=== PATIENT | male | born 1975 | race Caucasian/White ===

== ENCOUNTER 2019-10-22 03:17 | Emergency (ER) | payer OTHER ==
[~2019-10-22] VITALS: Ht 172.7 cm; Wt 77.1 kg
--- NOTE | 2019-10-22 04:00 | PHYS DOC ---
Past History Past Medical History: No Pertinent History Past Surgical History: No Surgical History Alcohol Use: None Drug Use: None Adult General Chief Complaint Chief Complaint: ABDOMINAL PAIN HPI HPI 43-year-old male presents with upper abdominal pain. The patient woke up around 1 AM with upper abdominal pressure mild to moderate intensity. The patient is around the went to the restroom thinking this would help with the discomfort. It has not gone away. The patient had a stomach illness" earlier this week. His daughter also had this illness. She has completely recovered. This pressure feeling was different than anything he had in the past. The patient and were concerned this could be related to his heart rather than his stomach. The patient did have a fast heart rate which has improved. He denies shortness of breath or diaphoresis. He has no history of heart trouble. No history of heart disease at young age in the family. Denies fever or chills. No vomiting or diarrhea. Review of Systems Review of Systems Constitutional: Denies fever or chills [] Eyes: Denies change in visual acuity, redness, or eye pain [] HENT: Denies nasal congestion or sore throat [] Respiratory: Denies cough or shortness of breath [] Cardiovascular: No additional information not addressed in HPI [] GI: Upper abdominal pain. Denies nausea, vomiting, bloody stools or diarrhea [] : Denies dysuria or hematuria [] Musculoskeletal: Denies back pain or joint pain [] Integument: Denies rash or skin lesions [] Neurologic: Denies headache, focal weakness or sensory changes [] Endocrine: Denies polyuria or polydipsia [] All other systems were reviewed and found to be within normal limits, except as documented in this note. Physical Exam Physical Exam Constitutional: Well developed, well nourished, no acute distress, non-toxic appearance. [] HENT: Normocephalic, atraumatic, bilateral external ears normal, oropharynx moist, no oral exudates, nose normal. [] Eyes: PERRLA, EOMI, conjunctiva normal, no discharge. [] Neck: Normal range of motion, no tenderness, supple, no stridor. [] Cardiovascular:Heart rate regular rhythm, no murmur [] Lungs & Thorax: Bilateral breath sounds clear to auscultation [] Abdomen: Bowel sounds normal, soft, no tenderness, no masses, no pulsatile masses. [] Skin: Warm, dry, no erythema, no rash. [] Back: No tenderness, no CVA tenderness. [] Extremities: No tenderness, no cyanosis, no clubbing, ROM intact, no edema. [] Neurologic: Alert and oriented X 3, normal motor function, normal sensory function, no focal deficits noted. [] Psychologic: Affect normal, judgement normal, mood concerned. [] Current Patient Data Vital Signs Vital Signs Date Time Temp Pulse Resp B/P (MAP) Pulse Ox O2 Delivery O2 Flow Rate FiO2 10/22/19 03:17 97.4 79 18 97 Room Air EKG EKG Sinus rhythm, rate 62, normal axis, no ST elevations or depressions.[] Radiology/Procedures Radiology/Procedures [] Impressions: KUB, CHEST PA LATERAL INDICATION: Abdominal pain, chest pain. COMPARISON STUDY: None. FINDINGS: Lungs: Normal lung volume. No pulmonary mass or consolidation. The tracheobronchial tree and hilar structures are normal. Pleura: No pleural effusion or pneumothorax. Heart and Mediastinum: The cardiomediastinal silhouette is normal. The great vessels of the thorax are normal. Abdomen: Nonobstructive bowel gas pattern. No free air. Moderate colonic stool burden. Bones and Soft Tissues: The bones and soft tissues are within normal limits. IMPRESSION: 1. Nonobstructive bowel gas pattern. Moderate colonic stool burden. 2. No focal airspace disease. Electronically signed by: Lamin Serrano MD (10/22/2019 4:36 AM) [facility] DICTATED AND SIGNED BY: LAMIN SERRANO MD DATE: 10/22/19 0436 CC: GRECIA HERRERA DO; PCP,NO ~ Course & Med Decision Making Course & Med Decision Making Pertinent Labs and Imaging studies reviewed. (See chart for details) The patient's chest x-ray is unremarkable. His KUB does show moderate stool burden. The patient's labs are unremarkable. His troponin is negative. Initial EKG like it might be atrial flutter, but it turned out to be poorly placement. A repeat EKG did not show any significant abnormalities. I have advised the patient to take a laxative for bowel cleanout see if this will help with his discomfort. He is stable for discharge at this time. [] Dragon Disclaimer Dragon Disclaimer This electronic medical record was generated, in whole or in part, using a voice recognition dictation system. Departure Departure: Impression: Primary Impression: Abdominal pain Additional Impression: Constipation by delayed colonic transit Disposition: HOME, SELF-CARE Condition: STABLE Referrals: PCP,ANNIE (PCP) Patient Instructions: Constipation, Adult, [id number] Problem Qualifiers Primary Impression: Abdominal pain Abdominal location: upper abdomen, unspecified Qualified Codes: R10.10 - Upper abdominal pain, unspecified GRECIA HERRERA DO Oct 22, 2019 04:00
--- NOTE | 2019-10-22 04:39 | RAD ---
KUB, CHEST PA LATERAL INDICATION: Abdominal pain, chest pain. COMPARISON STUDY: None. FINDINGS: Lungs: Normal lung volume. No pulmonary mass or consolidation. The tracheobronchial tree and hilar structures are normal. Pleura: No pleural effusion or pneumothorax. Heart and Mediastinum: The cardiomediastinal silhouette is normal. The great vessels of the thorax are normal. Abdomen: Nonobstructive bowel gas pattern. No free air. Moderate colonic stool burden. Bones and Soft Tissues: The bones and soft tissues are within normal limits. IMPRESSION: 1. Nonobstructive bowel gas pattern. Moderate colonic stool burden. 2. No focal airspace disease. Electronically signed by: Ifeanyi Zarate MD (10/22/2019 4:36 AM) [facility]
[2019-10-22 04:40] LABS: BASO # 0.2 x10^3/uL (0.0-0.2); BASO % 2 % (0-3); EOS # 0.1 x10^3/uL (0.0-0.7); EOS % 1 % (0-3); HEMATOCRIT 40.2 % (39.0-53.0); LYMPH # 1.6 x10^3/uL (1.0-4.8); LYMPH % 16 % (24-48); MEAN CORPUSCULAR HEMOGLOBIN 30 pg (25-35); MEAN CORPUSCULAR HGB CONC 35 g/dL (31-37); MEAN CORPUSCULAR VOLUME 85 fL (79-100); MONO # 0.8 x10^3/uL (0.0-1.1); MONO % 8 % (0-9); NEUT # 7.3 x10^3uL (1.8-7.7); NEUT % 73 % (31-73); PLATELET COUNT 316 x10^3/uL (140-400); RED BLOOD COUNT 4.71 x10^6/uL (4.30-5.70); RED CELL DISTRIBUTION WIDTH 12.7 % (11.5-14.5)
[2019-10-22 04:46] LABS: BILIRUBIN,URINE NEG (NEG); CLARITY,URINE CLEAR; COLOR,URINE YELLOW; GLUCOSE,URINE NEG (NEG); NITRITE,URINE NEG (NEG); RBC,URINE OCC /HPF (0-2)
[2019-10-22 04:47] LABS: BACTERIA,URINE 0 /HPF (0-FEW); SQUAMOUS EPITHELIAL CELL,UR OCC /LPF; WBC,URINE RARE /HPF (0-4)
[2019-10-22 04:56] LABS: CALCIUM 8.8 mg/dL (8.5-10.1); CREATININE 0.9 mg/dL (0.7-1.3); GFR 91.7; POTASSIUM 3.7 mmol/L (3.5-5.1)
[2019-10-22 05:02] LABS: ALBUMIN 3.8 g/dL (3.4-5.0); ALBUMIN/GLOBULIN RATIO 0.9 (1.0-1.7); TOTAL BILIRUBIN 0.5 mg/dL (0.2-1.0); TOTAL PROTEIN 7.9 g/dL (6.4-8.2)
[2019-10-22 05:05] VITALS: BP 120/67
[2019-10-22] MEDS ORDERED: AMOX1TAB61 PO (05:15)
--- NOTE | 2019-10-23 21:49 | EKG ---
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
== END 2019-10-22 05:30 | disposition home or self-care (01) ==
LOC: ER 03:17
DX: K59.01 Slow transit constipation (principal)
CPT/HCPCS: 36415; 71046; 74018; 80053; 81001; 83735; 84484; 85025; 93005; 99285

== ENCOUNTER 2019-12-20 20:18 | Observation (INO) | payer OTHER ==
[~2019-12-20] VITALS: Ht 174 cm; Wt 82.5 kg
[~2019-12-20 20:18] MED LIST: AMOX1TAB61 PO
--- NOTE | 2019-12-20 20:24 | PHYS DOC ---
Past History Past Medical History: No Pertinent History, Constipation Past Surgical History: No Surgical History Alcohol Use: None Drug Use: None Adult General Chief Complaint Chief Complaint: ".. I had knee surgery ...a scope and discuss repair on Friday.... But ever since I have not had a stool and now I can't urinate... I tried enemas and suppositories little bit of leakage but I'm really bound up..." HPI HPI Patient is a 44 year old male who presents with above hx and complaints constipation obstipation and urinary retention. Patient had right knee surgery on Friday the . Since that time he has not had a stool and now has not been able to urinate.. Patient has tried home remedies with enemas and suppositories with no results. Abdomen is very distended both and bladder region and colon on Lt. also has complaints of right leg edema and swelling. Review of Systems Review of Systems Constitutional: Denies fever or chills [] Eyes: Denies change in visual acuity, redness, or eye pain [] HENT: Denies nasal congestion or sore throat [] Respiratory: Denies cough or shortness of breath [] Cardiovascular: No additional information not addressed in HPI [] GI: Complaints of abdominal pain, nausea, and constipation : Denies dysuria or hematuria . Patient []complains of urinary retention Musculoskeletal: Denies back pain or joint pain [] Integument: Denies rash or skin lesions [] Neurologic: Denies headache, focal weakness or sensory changes [] Endocrine: Denies polyuria or polydipsia [] All other systems were reviewed and found to be within normal limits, except as documented in this note. Family History Family History Noncontributory to presentation Current Medications Current Medications See nursing for home meds Allergies Allergies Allergies Coded Allergies Type Severity Reaction Last Updated Verified No Known Allergies Allergy Unknown 10/22/19 Yes Physical Exam Physical Exam Constitutional: Well developed, well nourished, in acute distress, non-toxic appearance. [] HENT: Normocephalic, atraumatic, bilateral external ears normal, oropharynx moist, no oral exudates, nose normal. [] Eyes: PERRLA, EOMI, conjunctiva normal, no discharge. [] Neck: Normal range of motion, no tenderness, supple, no stridor. [] Cardiovascular:Heart rate regular rhythm, no murmur [] Lungs & Thorax: Bilateral breath sounds clear to auscultation [] Abdomen: Bowel sounds normal, soft, rectal tenderness, very distended bladder and left sided of abdomen, no pulsatile masses. [] Digital exam of rectum hard impacted stool found in digitally fractured the impaction. Placed suppositories placed. Circumcised male. Porter placed with return of more than thousand cc of urine. Skin: Warm, dry, no erythema, no rash. [] Back: No tenderness, no CVA tenderness. [] Extremities: No tenderness, no cyanosis, no clubbing, ROM intact, except right leg edema. Dressing in place no drainage. Ecchymosis.. [] Neurologic: Alert and oriented X 3, normal motor function, normal sensory function, no focal deficits noted. [] Psychologic: Affect anxious, judgement normal, mood normal. [] EKG EKG [] Radiology/Procedures Radiology/[place] [address] IMAGING REPORT Signed PATIENT: BAUDILIO COMBS FACCOUNT: [id number] : 1975 LOCATION: ER AGE: 44 SEX: M EXAM STATUS: REG ER ORD. PHYSICIAN: JACOBO MAI MD REASON: pain PROCEDURE: ACUTE ABDOMEN SERIES ACUTE ABDOMEN SERIES INDICATION: Pain. COMPARISON STUDY: None. FINDINGS: Lungs: Normal lung volume. No pulmonary mass or consolidation. The tracheobronchial tree and hilar structures are normal. Pleura: No pleural effusion or pneumothorax. Heart and Mediastinum: The cardiomediastinal silhouette is normal. The great vessels of the thorax are normal. Abdomen: Nonobstructive bowel gas pattern. No free air. Moderate colonic stool burden. Bones and Soft Tissues: The bones and soft tissues are within normal limits. IMPRESSION: 1. Nonobstructive bowel gas pattern. Moderate colonic stool burden. 2. No focal airspace disease. Electronically signed by: Lamin Zarate MD (12/20/2019 10:29 PM) [id number] DICTATED AND SIGNED BY: LAMIN ZARATE MD DATE: 12/20/192228 CC: AJCOBO MAI MD; PCP,NO ~ [][address] [address] IMAGING REPORT Signed PATIENT: BAUDILIO COMBS FACCOUNT: [id number] : 1975 LOCATION: [address] [place] [address] AGE: 44 SEX: M EXAM STATUS: ADM IN ORD. PHYSICIAN: JACOBO MAI MD REASON: knee surgery friday, concern for DVT PROCEDURE: VENOUS LOWER EXTREMITY RIGHT INDICATION: Status post right knee surgery with leg pain COMPARISON: None. TECHNIQUE: Grayscale, color and doppler ultrasound images were obtained of the right lower extremity venous vasculature. RIGHT: No thrombus identified in the common femoral vein, femoral vein, popliteal vein or visualized calf veins. IMPRESSION: * No thrombus identified in deep venous system of right lower extremity. Electronically signed by: Missy Lobato MD (12/21/2019 12:27 AM) [id number] DICTATED AND SIGNED BY: MISSY LOBATO MD DATE: 12/21/1926 CC: JACOBO MAI MD; SHARI NOLAN MD; PCP,NO ~ Course & Med Decision Making Course & Med Decision Making Pertinent Labs and Imaging studies reviewed. (See chart for details) Dear fluid diet only for the next 48 hours. No solids no milk products . Patient to take in only clear fluids only. Drink GoLYTELY until active diarrhea and clearing of all stool. Porter could probably be removed after c onstipation clears. Follow-up primary care. Return if any concerns. Pt. pain and nausea increased prior to discharge. Pt. admitted for serial enemas and hydration. To Dr. Nolan. Hopefully we'll be able to remove porter once his impaction clears. Will cover elevated leukocytosis with bands of Bactrim. [] Impression: 1. Constipation/Impaction of Stool 2. Urinary Retention 3. Leukocytosis 17.5 with 81 segs. Or. Right meniscus surgery Dragon Disclaimer Dragon Disclaimer This electronic medical record was generated, in whole or in part, using a voice recognition dictation system. Departure Departure: Disposition: 01 HOME/RESIDENCE PRIOR TO ADM Condition: STABLE Referrals: PCP,NO (PCP) Scripts Hydrocortisone Acetate (ANUSOL-HC) 25 Mg Supp.rect 25 MG RC QID for hemorrhoids, #30 SUPP.RECT Prov: JACOBO MAI MD 12/20/19 Scarlet Disclaimer This chart was dictated in whole or in part using Voice Recognition software in a busy, high-work load, and often noisy Emergency Department environment. It may contain unintended and wholly unrecognized errors or omissions. JACOBO MAI MD Dec 20, 2019 20:24
[2019-12-20] MEDS ORDERED: GLYCERIN ADULT 1 SUPP.RECT. ONE (20:33)
[2019-12-20] MEDS ORDERED: PEG4000S8 PO (20:52)
[2019-12-20] MEDS ORDERED: HYDR25SU18 RC (20:52)
[2019-12-20] MEDS ORDERED: MAGNESIUM CITRATE 296 ML SOLUTION. PO ONE (21:00)
[2019-12-20 21:49] LABS: BACTERIA,URINE 0 /HPF (0-FEW); BILIRUBIN,URINE NEG (NEG); CLARITY,URINE CLEAR; COLOR,URINE YELLOW; GLUCOSE,URINE NEG (NEG); NITRITE,URINE NEG (NEG); RBC,URINE 0 /HPF (0-2); SQUAMOUS EPITHELIAL CELL,UR OCC /LPF; UROBILINOGEN,URINE 0.2 mg/dL (0.2 mg/dL); WBC,URINE 0 /HPF (0-4)
[2019-12-20] MEDS ORDERED: ONDANSETRON ODT 4 MG TAB.RAPDIS ONE (22:27)
--- NOTE | 2019-12-20 22:31 | RAD ---
ACUTE ABDOMEN SERIES INDICATION: Pain. COMPARISON STUDY: None. FINDINGS: Lungs: Normal lung volume. No pulmonary mass or consolidation. The tracheobronchial tree and hilar structures are normal. Pleura: No pleural effusion or pneumothorax. Heart and Mediastinum: The cardiomediastinal silhouette is normal. The great vessels of the thorax are normal. Abdomen: Nonobstructive bowel gas pattern. No free air. Moderate colonic stool burden. Bones and Soft Tissues: The bones and soft tissues are within normal limits. IMPRESSION: 1. Nonobstructive bowel gas pattern. Moderate colonic stool burden. 2. No focal airspace disease. Electronically signed by: Ifeanyi Zarate MD (12/20/2019 10:29 PM) [id number]
[2019-12-20] MEDS ORDERED: ONDANSETRON ODT 4 MG TAB.RAPDIS PO ONE (22:45)
[2019-12-20] MEDS ORDERED: ACETAMINOPHEN 325 MG TABLET PO PRN (23:15)
[2019-12-20] MEDS ORDERED: KETOROLAC 30 MG/ML VIAL. IVP PRN (23:15)
[2019-12-20] MEDS ORDERED: ONDANSETRON PF 4 MG/2 ML VIAL. IV PRN (23:15)
[2019-12-20] MEDS ORDERED: FAMOTIDINE 20 MG/2 ML VIAL IVP ONE (23:30)
[2019-12-20] MEDS ORDERED: IV RINGERS SOLUTION,LACTATED 1,000 ML IV SCH (23:30)
[2019-12-20] MEDS ORDERED: ONDANSETRON PF 4 MG/2 ML VIAL. IVP ONE (23:30)
[2019-12-20] MEDS ORDERED: ENOXAPARIN ** NOTE DOSE ** SYRINGE SQ ONE (23:45)
[2019-12-20] MEDS ORDERED: PEG 3350/NA SULF,BICARB,CL/KCL 4,000 ML SOLUTION. PO ONE (23:45)
[2019-12-21 00:19] LABS: BASO % 0 % (0-3); EOS % 0 % (0-3); HEMATOCRIT 41.4 % (39.0-53.0); HEMOGLOBIN 13.7 g/dL (13.0-17.5); LYMPH # 1.2 x10^3/uL (1.0-4.8); LYMPH % 7 % (24-48); MEAN CORPUSCULAR HEMOGLOBIN 29 pg (25-35); MEAN CORPUSCULAR HGB CONC 33 g/dL (31-37); MEAN CORPUSCULAR VOLUME 87 fL (79-100); MONO # 1.1 x10^3/uL (0.0-1.1); MONO % 6 % (0-9); NEUT # 15.2 x10^3uL (1.8-7.7); NEUT % 87 % (31-73); PLATELET COUNT 318 x10^3/uL (140-400); RED BLOOD COUNT 4.75 x10^6/uL (4.30-5.70); RED CELL DISTRIBUTION WIDTH 12.9 % (11.5-14.5); WHITE BLOOD COUNT 17.5 x10^3/uL (4.0-11.0)
[2019-12-21 00:28] LABS: CALCIUM 8.8 mg/dL (8.5-10.1); GFR 80.8; POTASSIUM 3.6 mmol/L (3.5-5.1)
--- NOTE | 2019-12-21 00:30 | RAD ---
INDICATION: Status post right knee surgery with leg pain COMPARISON: None. TECHNIQUE: Grayscale, color and doppler ultrasound images were obtained of the right lower extremity venous vasculature. RIGHT: No thrombus identified in the common femoral vein, femoral vein, popliteal vein or visualized calf veins. IMPRESSION: * No thrombus identified in deep venous system of right lower extremity. Electronically signed by: Mor Lobato MD (12/21/2019 12:27 AM) [id number]
[2019-12-21 00:52] LABS: % BANDS 8 % (0-9); % LYMPHS 11 % (24-48); % SEGS 81 % (35-66); PLT ESTIMATE ADEQUATE (ADEQUATE)
[2019-12-21] MEDS: SODIUM PHOSPHATES 19/7GM 133 ML ENEMA. PR SCH ×3 (01:41→13:00)
[2019-12-21] MEDS: IV RINGERS SOLUTION,LACTATED 1,000 ML IV SCH ×3 (01:42→10:58)
[2019-12-21 01:44] VITALS: BP 126/75
[2019-12-21] MEDS ORDERED: POLYETHYLENE GLYCOL 3350 17 GM PACKET. PO PRN (03:00)
[2019-12-21] MEDS ORDERED: ASPI325T8 PO (03:23)
[2019-12-21 06:08] VITALS: BP 125/76
[2019-12-21 06:17] LABS: BASO % 0 % (0-3); EOS % 0 % (0-3); HEMATOCRIT 37.7 % (39.0-53.0); HEMOGLOBIN 12.6 g/dL (13.0-17.5); LYMPH # 2.3 x10^3/uL (1.0-4.8); LYMPH % 17 % (24-48); MEAN CORPUSCULAR HEMOGLOBIN 29 pg (25-35); MEAN CORPUSCULAR HGB CONC 34 g/dL (31-37); MEAN CORPUSCULAR VOLUME 87 fL (79-100); MONO # 1.2 x10^3/uL (0.0-1.1); MONO % 8 % (0-9); NEUT # 10.5 x10^3uL (1.8-7.7); NEUT % 75 % (31-73); PLATELET COUNT 273 x10^3/uL (140-400); RED BLOOD COUNT 4.32 x10^6/uL (4.30-5.70); RED CELL DISTRIBUTION WIDTH 12.8 % (11.5-14.5)
[2019-12-21 06:27] LABS: CALCIUM 8.3 mg/dL (8.5-10.1); CREATININE 0.9 mg/dL (0.7-1.3); GFR 91.3
[2019-12-21] MEDS ORDERED: SMZ/TMP 800/160MG TABLET. PO SCH (09:00)
[2019-12-21] MEDS ORDERED: LACTOBACILLUS RHAMNOSUS GG 1 CAPSULE. PO SCH (09:00)
[2019-12-21 10:31] VITALS: BP 116/67
[2019-12-21] MEDS ORDERED: MAGN296S68 PO (14:52)
[2019-12-21] MEDS ORDERED: POLY17PO5 PO (14:52)
[2019-12-21] MEDS ORDERED: DOCU-109 PO (14:52)
[2019-12-21 14:57] VITALS: BP 113/69
[2019-12-21] MEDS ORDERED: SULF1TAB24 PO (15:11)
--- NOTE | 2019-12-21 16:33 | SSS ---
ADMIT DATE: HISTORY OF PRESENT ILLNESS: The patient is a 44-year-old male patient who came to the Emergency Room complaining that he has had his arthroscopic surgery for meniscal tear last Friday and ever since he has not had any bowel movement. He cannot urinate. He tried enemas and suppositories with little bit of leakage, but continued to be ____. He was evaluated in the Emergency Room and was found to be extremely constipated. His abdomen is very distended in both bladder region and the colon. He also has complained of right leg edema and swelling. He has had x-ray, which showed that he has nonobstructive bowel gas pattern, has moderate colonic stool burden. No focal airspace disease. He had a venous Doppler ultrasound of his right lower extremity, which showed no thrombus identified in deep venous system of the right lower extremity. He underwent digital disimpaction and he was treated with GoLYTELY. He was treated with enemas and did actually start on IV fluids and serial enemas and his bowel has cleared by the time I saw him. He also had urinated and the plan was to discharge him home to continue on Colace, MiraLax and mag citrate as necessary. PAST MEDICAL HISTORY: Unremarkable. PAST SURGICAL HISTORY: Significant for wisdom teeth extraction and arthroscopic surgery of the right knee for meniscal tear. ALLERGIES: He has no known drug allergies. MEDICATIONS: He is on hydrocodone 5/325 one tablet every 4-6 hours. He is also on aspirin 325 mg twice a day for DVT prophylaxis. FAMILY HISTORY: Noncontributory. SOCIAL HISTORY: He is . Does not smoke, drink alcohol or use any recreational drugs. PHYSICAL EXAMINATION: GENERAL: On arrival to the Emergency Room, he looked well and was clearly in no apparent distress. No pallor, jaundice, cyanosis or thyromegaly. No jugular venous distention. No lower limb edema. VITAL SIGNS: His heart rate was 91, blood pressure 150/75, temperature was 98.4, respiratory rate was 20, and oxygen saturation was 98%. HEAD, EYES, EARS, NOSE AND THROAT: Show normocephalic, atraumatic. NECK: Supple. HEART: Showed normal first and second heart sounds. No gallop or murmur. CHEST: Clear to auscultation. No crepitation or rhonchi. ABDOMEN: Distended, soft, nontender. NEUROLOGIC: He was awake, alert, responding appropriately. All cranial nerves intact. EXTREMITIES: He moves extremities without difficulty. LABORATORY DATA: His lab work on admission showed a white cell count 17,500, hemoglobin 13.7, hematocrit 41, MCV 87, and platelet count of 318,000. His prothrombin time, INR and aPTT are normal. His chemistry showed a serum sodium 137, potassium 3.6, chloride 100, bicarbonate 26, anion gap of 11, BUN 16, creatinine 1, estimated GFR was 81 mL per minute, his glucose 115, calcium was 8.8. Serum amylase and lipase are normal. Urinalysis is essentially unremarkable. RADIOLOGICAL DATA: His x-ray, acute abdomen series showed that the patient has normal lung volumes, no pulmonary mass or consolidation. The tracheobronchial tree and hilar structures are normal. There is no pleural effusion or pneumothorax. The cardiomediastinal silhouette is normal. The great vessels of thorax are normal. Abdomen, nonobstructive bowel gas pattern, no free air, moderate colonic stool burden. Bones and soft tissues are within normal limits. He did have a venous Doppler ultrasound of his right lower extremity showed no thrombus identified in deep venous system of the right lower extremity. ASSESSMENT AND PLAN: After admission, the patient was also treated with GoLYTELY as well as multiple disimpaction and enemas together with MiraLax and Fleet enemas and he has multiple bowel movements. He was able to urinate and has stabilized, so the patient will be will be discharged home to continue on his hydrocodone/APAP 1 tablet every 4-6 hours, continue with Colace 100 mg twice a day, MiraLax 17 grams once a day and mag citrate 17 grams daily. He has had blood cultures sent and was started empirically on Bactrim DS as he had marked leukocytosis when he came, although the urinalysis was essentially unremarkable and his chest x-ray was normal. His wound seems to be clear. I will discharge him also on Bactrim DS and the patient was asked to contact us again within next 2 days to find out if his urine or blood culture were positive. SHARI BURGOS MD DR: KIMBERLEE/gordo JOB#: [id number] / [id number]
== END 2019-12-21 15:59 | disposition home or self-care (01) ==
LOC: ER 20:18 → 1 SOUTH 23:00 → INTOOBSV 23:00
PROVIDERS: ADMIT Internal Medicine; ATTEND Internal Medicine
DX: K91.30 Postprocedural intestinal obstruction, unspecified as to partial versus complete (principal); R33.9 Retention of urine, unspecified; D72.829 Elevated white blood cell count, unspecified; Z79.899 Other long term (current) drug therapy
CPT/HCPCS: 36415; 51702; 74022; 80048; 81001; 82150; 83690; 85007; 85025; 85610; 85730; 87040; 93971; 96372; 96374; 96375; 99285; G0238; G0378; J1650; J1885; J2405; J3490; J7120; Q0162; 96361; G0379

== ENCOUNTER 2020-06-05 03:39 | Emergency (ER) | payer OTHER ==
[~2020-06-05] VITALS: Ht 175.3 cm; Wt 78.5 kg
[~2020-06-05 03:39] MED LIST changes: +ASPI325T8 PO; +DOCU-109 PO; +HYDR25SU18 RC; +MAGN296S68 PO; +PEG4000S8 PO; +POLY17PO5 PO; +SULF1TAB24 PO
--- NOTE | 2020-06-05 03:45 | PHYS DOC ---
Past History Past Medical History: No Pertinent History, Constipation (JACOBO MAI MD) Past Surgical History: No Surgical History (JACOBO MAI MD) Alcohol Use: None Drug Use: None (JACOBO MAI MD) General Adult EDM: Chief Complaint: ABDOMINAL PAIN HPI: HPI: ".. I ve been having pain for a while.. but it got bad again tonight..Its about 06/12..my made me come in ... I been seeing my doctor..the family doctor...but I also have been seeing Dr. Rogers.. he completed a EGD and Colon exam on friday.. they did a couple biopsies I do not have the results of those yet ...I have had problems with constipation in the past... But that is not a problem now... Pain is across my abdomen here and it woke me up out of a sound sleep... But I have been having it for week or 2 off and on...." .." Dr Rogers felt it was related to GERD or gastritis.. 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 Patient denies any intake of bad food. No history of trauma. No history of dark or tarry stools. No history of travel recent travel outside the [place] area except to [facility]. No specific ill contacts. Animals in the house consist of dog cat and a new kitten they are all healthy. They are on city water. No specific history of COVID contacts or ill contacts. No history of immunosuppression. Patient denies any problems with constipation. Has passed gas. Has had normal stools. There has been some increased sensitivity to dairy type foods. Patient does have a history of periodic GERD complaints. Patient has been compliant with his antiacid drug Prilosec. Patient states that when he did did have symptoms night he did seem to feel better after eating. Last ate approximately 1800 hrs. Patient recent test for COVID was negative which he completed for his EGD and colonoscopy. Patient has not had a CT of abdomen during his abdomen pain work-up. (JACOBO MAI MD) Review of Systems: Review of Systems: Constitutional: Denies fever or chills Eyes: Denies change in visual acuity HENT: Denies nasal congestion or sore throat Respiratory: Denies cough or shortness of breath Cardiovascular: Denies chest pain or edema GI: Complaints of abdominal pain, nausea,. Denies vomiting, bloody stools or diarrhea : Denies dysuria Musculoskeletal: Denies back pain or joint pain Integument: Denies rash Neurologic: Denies headache, focal weakness or sensory changes Endocrine: Denies polyuria or polydipsia Lymphatic: Denies swollen glands Psychiatric: Denies depression or anxiety (JACOBO MAI MD) Heart Score: HEART Score for Chest Pain: HEART Score for Chest Pain Response (Comments) Value History Slighlty/Non-Suspicious 0 ECG Normal 0 Age >45 - < 65 1 Risk Factors 1 or 2 Risk Factors 1 Total 2 Risk Factors: Risk Factors: DM, Current or recent (<one month) smoker, HTN, HLP, family history of CAD, obesity. Risk Scores: Score 0 - 3: 2.5% MACE over next 6 weeks - Discharge Home Score 4 - 6: 20.3% MACE over next 6 weeks - Admit for Clinical Observation Score 7 - 10: 72.7% MACE over next 6 weeks - Early Invasive Strategies (JACOBO MAI MD) Family History: Family History: Noncontributory to presentation (JACOBO MAI MD) Current Medications: Current Meds: See nursing for home meds (JACOBO MAI MD) Allergies: Allergies: Allergies Coded Allergies Type Severity Reaction Last Updated Verified No Known Allergies Allergy Unknown 10/22/19 Yes (JACOBO MAI MD) Physical Exam: PE: Constitutional: Moderate acute distress, rates upper abdomen pain is 8 out of 10, non-toxic appearance. [] HENT: Normocephalic, atraumatic, bilateral external ears normal, oropharynx moist, no oral exudates, nose normal. [] Eyes: PERRLA, EOMI, conjunctiva normal, no discharge. [] Neck: Normal range of motion, no tenderness, supple, no stridor. [] Cardiovascular:Heart rate regular rhythm, no murmur [] Lungs & Thorax: Bilateral breath sounds are equal at apex on auscultation [] Abdomen: Bowel sounds hyperactive,, soft, bilateral upper abdomen and epigastric tenderness, no masses, no pulsatile masses. Mild rebound to upper abdomen. No lower abdomen tenderness. Skin: Warm, dry, no erythema, no rash. [] Back: No tenderness, no CVA tenderness. [] Extremities: No tenderness, no cyanosis, no clubbing, ROM intact, no edema. No psoas sign. Neurologic: Alert and oriented X 3, normal motor function, normal sensory function, no focal deficits noted. [] Psychologic: Affect anxious , judgement normal, mood normal. [] (JACOBO MAI MD) EKG: EKG: My interpretation of the EKG shows a sinus rhythm at 68 bpm. No findings of acute STEMI or contralateral changes. There is some baseline movement artifact. [] (JACOBO MAI MD) Radiology/Procedures: Radiology/Procedures: [[address] [address] IMAGING REPORT Signed PATIENT: BAUDILIO COMBS FACCOUNT: [id number] : 1975 LOCATION: ER AGE: 44 SEX: M EXAM STATUS: REG ER ORD. PHYSICIAN: JACOBO MAI MD REASON: pain PROCEDURE: ACUTE ABDOMEN SERIES INDICATION: Reason: pain / Spl. Instructions: / History: COMPARISON: None. IMPRESSION: 3 views of the chest and abdomen obtained. No focal airspace consolidation to suggest pneumonia. Cardiac silhouette is unremarkable. There is some scattered air seen within the large and small bowel in a nonspecific but not grossly obstructed pattern. Electronically signed by: Missy Alves MD (06/05/2020 5:28 AM) [id number] DICTATED AND SIGNED BY: MISSY ALVES MD DATE: 06/05/20 0528 CC: JACOBO MAI MD; PCP,NO ~ ][address] [address] IMAGING REPORT Signed PATIENT: BAUDILIO COMBS FACCOUNT: [id number] : 1975 LOCATION: ER AGE: 44 SEX: M EXAM STATUS: REG ER ORD. PHYSICIAN: JACOBO MAI MD REASON: pain, OMNI 300, 75ml & OMNI 240, 30ml PROCEDURE: CT ABD PELV W/ORAL&IV CONTRAST INDICATION: Reason: pain in the abdomen, OMNI 300, 75ml OMNI 240, 30ml / Spl. Instructions: / History: COMPARISON: December 2027 plain film TECHNIQUE: Axial CT images obtained through the abdomen and pelvis with contrast. One or more of the following individualized dose reduction techniques were utilized for this examination: 1. Automated exposure control; 2. Adjustment of the mA and/or kV according to patient size; 3. Use of iterative reconstruction technique. FINDINGS: Small fat-containing umbilical hernia. Left greater than right fat-containing inguinal hernia. No intrahepatic bile duct dilation. No peripancreatic fluid collection. Spleen unremarkable. Multiple subcentimeter left renal lesion which are low density and small to characterize on this exam. Urinary bladder is partially distended. Nonobstructive right renal stone. Mild prominence of the right renal pelvis. Wall thickening of the terminal ileum with edema to the fat within the area. There are some enlarged adjacent lymph nodes. There is also some dilatation of the distal ileum. Appendix not well seen. Small free fluid. Degenerative changes of spine with multilevel central canal and neural foraminal stenosis. IMPRESSION: * There is some edema in the fat in the right lower quadrant with wall thickening of distal ileum. Would correlate with symptoms within the region since causes such as infectious or inflammatory bowel disease could have this appearance. There are adjacent lymph nodes which may be reactive in nature and appear mildly enlarged. There is some mild wall thickening but portion of the cecum as well. There is mild dilatation of the distal small bowel proximal to the site of inflammation. Electronically signed by: Missy Alves MD (06/05/2020 6:54 AM) [id number] DICTATED AND SIGNED BY: MISSY ALVES MD DATE: 06/05/20 0654 CC: RHONDA HOWARD DO; JACOBO MAI MD; PCP,NO ~ (JACOBO MAI MD) Radiology/Procedures: PROCEDURE: ACUTE ABDOMEN SERIES INDICATION: Reason: pain / Spl. Instructions: / History: COMPARISON: None. IMPRESSION: 3 views of the chest and abdomen obtained. No focal airspace consolidation to suggest pneumonia. Cardiac silhouette is unremarkable. There is some scattered air seen within the large and small bowel in a nonspecific but not grossly obstructed pattern. Electronically signed by: Missy Alves MD (06/05/2020 5:28 AM) [id number] PROCEDURE: CT ABD PELV W/ORAL&IV CONTRAST INDICATION: Reason: pain in the abdomen, OMNI 300, 75ml OMNI 240, 30ml / Spl. Instructions: / History: COMPARISON: December 2027 plain film TECHNIQUE: Axial CT images obtained through the abdomen and pelvis with contrast. One or more of the following individualized dose reduction techniques were utilized for this examination: 1. Automated exposure control; 2. Adjustment of the mA and/or kV according to patient size; 3. Use of iterative reconstruction technique. FINDINGS: Small fat-containing umbilical hernia. Left greater than right fat-containing inguinal hernia. No intrahepatic bile duct dilation. No peripancreatic fluid collection. Spleen unremarkable. Multiple subcentimeter left renal lesion which are low density and small to characterize on this exam. Urinary bladder is partially distended. Nonobstructive right renal stone. Mild prominence of the right renal pelvis. Wall thickening of the terminal ileum with edema to the fat within the area. There are some enlarged adjacent lymph nodes. There is also some dilatation of the distal ileum. Appendix not well seen. Small free fluid. Degenerative changes of spine with multilevel central canal and neural foraminal stenosis. IMPRESSION: * There is some edema in the fat in the right lower quadrant with wall thickening of distal ileum. Would correlate with symptoms within the region since causes such as infectious or inflammatory bowel disease could have this appearance. There are adjacent lymph nodes which may be reactive in nature and appear mildly enlarged. There is some mild wall thickening but portion of the cecum as well. There is mild dilatation of the distal small bowel proximal to the site of inflammation. Electronically signed by: Missy Alves MD (06/05/2020 6:54 AM) [id number] (RHONDA HOWARD DO) Course & Med Decision Making: Course & Med Decision Making Pertinent Labs and Imaging studies reviewed. (See chart for details) Keep follow up with primary and GI Dr. Rogers. Recommend Clear fluid diet. No milk or solids x 2 days. Allow bowel rest. Re-exam if no improvement. Follow instruction s of Dr. Howard for your disposition. Follow up pending bowel biopsies completed by Dr. Rogers. Must have reexam increased tenderness or no improvement. Abdomen pain can be cause by inflammatory issues, viral, or surgical pathology. Must follow up if no improvement or obvious pathology found on this evaluation. Patient endorsed to Dr. Howard at shift change. Labs and CT pending. Impression: 1. Abdomen Pain 2. History of GERD [] (JACOBO MAI MD) Course & Med Decision Making I took over the care of patient after thorough signout from overnight physician Patient seen, history elicited and physical exam performed by myself, agree with findings from overnight physician Chart reviewed, reviewed pertinent labs and imaging ordered today Patient symptomatology improved, hemodynamically stable and feeling better with current ED course. Discussed ED course and findings discussed with patient. Joint decision for discharge home with close PCP and GI follow-up as previously scheduled Discussed role of Carafate use in outpatient setting, patient amenable to this prescription and use with further consideration of use deferred to GI Also discussed findings from CT scan and patient's presenting symptoms, specifically discussed infectious versus inflammatory nature of lower GI track. Joint decision to cover for infectious process with p.o. antibiotics Patient discharged home in stable condition with p.o. azithromycin and Carafate use with close PCP follow-up advised in upcoming 1 to 5 days and GI follow-up as previously scheduled in upcoming1-2 weeks Strict return precautions discussed at length with good understanding by patient, all questions and concerns addressed prior to ED departure (RHONDA HOWARD DO) Scarlet Disclaimer: Scarlet Disclaimer: This electronic medical record was generated, in whole or in part, using a voice recognition dictation system. (JACOBO MAI MD) Departure Departure: Disposition: 01 HOME/RESIDENCE PRIOR TO ADM Condition: STABLE Referrals: PCPANNIE (PCP) Patient Instructions: Abdominal Pain, Azithromycin tablets Additional Instructions: You have been evaluated in the Emergency Department today for abdominal pain. Your evaluation was not suggestive of any emergent condition requiring medical intervention at this time. However, some abdominal problems make take more time to appear. Therefore, it is important for you to watch for any new symptoms or worsening of your current condition. Please follow up with your primary care physician in upcoming 1 to 5 days. Please keep follow-up with outpatient GI specialist as previously scheduled Return to the Emergency Department if you experience worsening pain, persistent fevers greater than 100.4, recurrent vomiting, blood in vomit, blood in stool, dark tarry stool, chest pain, difficulty breathing, or any other concerning symptoms. Scripts Azithromycin (AZITHROMYCIN TABLET) 500 Mg Tablet 1 TAB PO DAILY for ABDOMINAL PAIN for 3 Days, #3 TAB 0 Refills Prov: RHONDA HOWARD DO 06/05/20 Sucralfate (CARAFATE) 1 Gm Tablet 1 TAB PO QID for GERD for 30 Days, #120 TAB 0 Refills Prov: RHONDA HOWARD DO 06/05/20 Justification of Admission: Justification of Admission: Justification of Admission Dx: N/A (JACOBO MAI MD) Justification of Admission Dx: N/A (RHONDA HOWARD DO) Dragon Disclaimer This chart was dictated in whole or in part using Voice Recognition software in a busy, high-work load, and often noisy Emergency Department environment. It may contain unintended and wholly unrecognized errors or omissions. (JAOCBO MAI MD) Dragon Disclaimer This chart was dictated in whole or in part using Voice Recognition software in a busy, high-work load, and often noisy Emergency Department environment. It may contain unintended and wholly unrecognized errors or omissions. (JACOBO MIA MD) JACOBO MAI MD Jun 05, 2020 03:45 RHONDA HOWARD DO Jun 05, 2020 06:48
--- NOTE | 2020-06-05 04:25 | EKG ---
[address] [address] Test Date: 2020-06-05 Test Time: 03:48:49 Pat Name: BAUDILIO COMBS Department: Room: Gender: M Revival Clerk: : 1975 Requested By: JACOBO MAI Order Number: [id number] Reading MD: Measurements Intervals [place] Rate: 68 P: 16 VA: 166 QRS: 9 QRSD: 80 T: 28 QT: 376 QTc: 404 Interpretive Statements SINUS RHYTHM NORMAL ECG RI6.02 No previous ECG available for comparison
[2020-06-05] MEDS ORDERED: SUCRALFATE 1 GM TABLET. PO ONE ×2 (04:30→05:00)
[2020-06-05] MEDS ORDERED: FAMOTIDINE 20 MG/2 ML VIAL ONE (04:30)
[2020-06-05] MEDS ORDERED: ONDANSETRON PF 4 MG/2 ML VIAL. ONE (04:30)
[2020-06-05] MEDS ORDERED: MAGNESIUM HYDROXIDE 2,400 MG/30 ML ORAL.SUSP. ONE (04:30)
[2020-06-05 04:34] LABS: BASO % 0 % (0-3); EOS % 0 % (0-3); HEMOGLOBIN 13.9 g/dL (13.0-17.5); LYMPH # 1.6 x10^3/uL (1.0-4.8); LYMPH % 13 % (24-48); MEAN CORPUSCULAR HEMOGLOBIN 29 pg (25-35); MEAN CORPUSCULAR HGB CONC 34 g/dL (31-37); MEAN CORPUSCULAR VOLUME 87 fL (79-100); MONO # 0.6 x10^3/uL (0.0-1.1); MONO % 5 % (0-9); NEUT # 9.6 x10^3uL (1.8-7.7); NEUT % 81 % (31-73); PLATELET COUNT 303 x10^3/uL (140-400); RED BLOOD COUNT 4.73 x10^6/uL (4.30-5.70); RED CELL DISTRIBUTION WIDTH 12.6 % (11.5-14.5); WHITE BLOOD COUNT 11.8 x10^3/uL (4.0-11.0)
[2020-06-05 04:42] LABS: CALCIUM 9.4 mg/dL (8.5-10.1); CREATININE 1.2 mg/dL (0.7-1.3); GFR 65.5; POTASSIUM 3.9 mmol/L (3.5-5.1)
[2020-06-05] MEDS ORDERED: CONTRAST GIVEN. MC PRN (04:45)
[2020-06-05] MEDS ORDERED: KETOROLAC 30 MG/ML VIAL. IVP ONE ×2 (04:45→05:00)
[2020-06-05 04:47] LABS: ALBUMIN 4.2 g/dL (3.4-5.0); DIRECT BILIRUBIN 0.2 mg/dL (0.0-0.2); TOTAL BILIRUBIN 0.7 mg/dL (0.2-1.0); TOTAL PROTEIN 7.7 g/dL (6.4-8.2)
[2020-06-05] MEDS ORDERED: FAMOTIDINE 20 MG/2 ML VIAL IVP ONE (05:00)
[2020-06-05] MEDS ORDERED: ONDANSETRON PF 4 MG/2 ML VIAL. IVP ONE (05:00)
[2020-06-05] MEDS ORDERED: IOHEXOL 240 MG/ML 50ML VIAL. PO ONE (05:00)
[2020-06-05] MEDS ORDERED: MAGNESIUM HYDROXIDE 2,400 MG/30 ML ORAL.SUSP. PO ONE (05:00)
[2020-06-05] MEDS ORDERED: IOHEXOL 300 MG/ML 75 ML VIAL. IV ONE (05:00)
[2020-06-05] MEDS ORDERED: IV RINGERS SOLUTION,LACTATED 1,000 ML IV SCH (05:00)
--- NOTE | 2020-06-05 05:31 | RAD ---
INDICATION: Reason: pain / Spl. Instructions: / History: COMPARISON: None. IMPRESSION: 3 views of the chest and abdomen obtained. No focal airspace consolidation to suggest pneumonia. Cardiac silhouette is unremarkable. There is some scattered air seen within the large and small bowel in a nonspecific but not grossly obstructed pattern. Electronically signed by: Mor Lobato MD (06/05/2020 5:28 AM) [id number]
[2020-06-05 05:36] LABS: BACTERIA,URINE 0 /HPF (0-FEW); BARBITURATES NEG (NEG); BENZODIAZEPINES NEG (NEG); BILIRUBIN,URINE NEG (NEG); CANNABINOIDS NEG (NEG); CLARITY,URINE CLEAR; COCAINE NEG (NEG); COLOR,URINE YELLOW; GLUCOSE,URINE NEG (NEG); METHADONE NEG (NEG); NITRITE,URINE NEG (NEG); OPIATES NEG (NEG); PHENCYCLIDINE NEG (NEG); RBC,URINE 0 /HPF (0-2); SQUAMOUS EPITHELIAL CELL,UR OCC /LPF; UROBILINOGEN,URINE 0.2 mg/dL (0.2 mg/dL); WBC,URINE OCC /HPF (0-4)
[2020-06-05 05:37] LABS: AMPHETAMINE/METHAMPHETAMINE NEG (NEG)
--- NOTE | 2020-06-05 06:56 | RAD ---
INDICATION: Reason: pain in the abdomen, OMNI 300, 75ml OMNI 240, 30ml / Spl. Instructions: / History: COMPARISON: December 2027 plain film TECHNIQUE: Axial CT images obtained through the abdomen and pelvis with contrast. One or more of the following individualized dose reduction techniques were utilized for this examination: 1. Automated exposure control; 2. Adjustment of the mA and/or kV according to patient size; 3. Use of iterative reconstruction technique. FINDINGS: Small fat-containing umbilical hernia. Left greater than right fat-containing inguinal hernia. No intrahepatic bile duct dilation. No peripancreatic fluid collection. Spleen unremarkable. Multiple subcentimeter left renal lesion which are low density and small to characterize on this exam. Urinary bladder is partially distended. Nonobstructive right renal stone. Mild prominence of the right renal pelvis. Wall thickening of the terminal ileum with edema to the fat within the area. There are some enlarged adjacent lymph nodes. There is also some dilatation of the distal ileum. Appendix not well seen. Small free fluid. Degenerative changes of spine with multilevel central canal and neural foraminal stenosis. IMPRESSION: * There is some edema in the fat in the right lower quadrant with wall thickening of distal ileum. Would correlate with symptoms within the region since causes such as infectious or inflammatory bowel disease could have this appearance. There are adjacent lymph nodes which may be reactive in nature and appear mildly enlarged. There is some mild wall thickening but portion of the cecum as well. There is mild dilatation of the distal small bowel proximal to the site of inflammation. Electronically signed by: Mor Lobato MD (06/05/2020 6:54 AM) [id number]
[2020-06-05 07:17] VITALS: BP 121/63
[2020-06-05] MEDS ORDERED: SUCR1TAB35 PO (07:24)
[2020-06-05] MEDS ORDERED: AZIT500T4 PO (07:24)
== END 2020-06-05 07:33 | disposition home or self-care (01) ==
LOC: ER 03:39
DX: R10.13 Epigastric pain (principal); R10.11 Right upper quadrant pain; R10.12 Left upper quadrant pain; R11.0 Nausea; K21.9 Gastro-esophageal reflux disease without esophagitis
CPT/HCPCS: 36415; 74022; 74177; 80048; 80076; 80307; 81001; 82150; 82550; 83690; 84484; 85025; 85610; 85730; 93005; 96361; 96374; 96375; 99285; J1885; J2405; J3490; J7120; Q9966; Q9967

== ENCOUNTER → 2020-09-20 | Outpatient (CLI) | payer OTHER ==
[~2020-09-20] MED LIST changes: +AZIT500T4 PO; +SUCR1TAB35 PO
--- NOTE | 2020-09-20 09:17 | RAD ---
Complete abdominal ultrasound 09/20/2020 INDICATION: Weight loss. COMPARISON STUDY: CT of the abdomen and pelvis June 05, 2020 FINDINGS: Ultrasound evaluation of the abdomen was performed. Static images are submitted to PACS. Visualized pancreas is grossly unremarkable. Visualized aorta and IVC are unremarkable. The liver is normal in size measuring 15 cm longitudinally. Hepatic echotexture is within normal limits. No focal hepatic lesions are identified. No intrahepatic biliary dilatation is seen. Portal venous flows in the normal direction. The gallbladder is normal in appearance without evidence of wall thickening, stones, or sludge. The right kidney is normal in appearance measuring 10 cm in length. The common bile duct is nondilated measuring 2 mm in diameter. Spleen is normal in size measuring 8 cm longitudinally. Left kidney is normal in appearance measuring 11.3 cm in length. IMPRESSION: Normal sonographic appearance of the abdomen Electronically signed by: Yariel Tejeda MD (09/20/2020 9:14 AM) [id number]
== END ==
LOC: US 08:30
PROVIDERS: ATTEND Internal Medicine
DX: R63.4 Abnormal weight loss (principal)
CPT/HCPCS: 76700